=== PATIENT | female | born 1965 | race Two or more races ===

== ENCOUNTER 2023-01-07 11:07 | Outpatient (CLI) | payer OTHER | END 2023-01-07 11:13 | disposition home or self-care (01) | LOC: SONOGRAMA 11:07 | PROVIDERS: ATTEND Surgery | DX: C50.112 Malignant neoplasm of central portion of left female breast (principal) ==

== ENCOUNTER 2023-02-18 06:26 | Inpatient (IN) | payer OTHER ==
[~2023-02-18] VITALS: Ht 162.6 cm; Wt 106.6 kg
[2023-02-19 12:30] LABS: HEMATOCRIT 35.7 % (36.0-45.00); HEMOGLOBIN 12.1 g/dL (12.0-15.00); MEAN CELL VOLUME 86.4 fL (80.00-100.00); MEAN CORPUSCULAR HEMOGLOBIN 29.2 pg (27.00-32.0); MEAN CORPUSCULAR HGB CONC 33.8 g/dl (32.0-36.0); PLATELET COUNT 223 K/uL (150-450); RED BLOOD COUNT 4.13 M/uL (4.00-6.00); RED CELL DISTRIBUTION WIDTH 13.5 % (11.5-14.5)
[2023-02-19 12:52] LABS: ALBUMIN 3.1 gm/dL (3.4-5.0); BILIRUBIN TOTAL 0.4 mg/dL (0.3-1.2); CALCIUM 8.2 mg/dL (8.5-10.1); CREATININE SERUM 0.73 mg/dL (0.55-1.02); GFR 82.17; GLOBULINA 3.3 G/DL (2.4-3.5); POTASSIUM 4.03 mEq/L (3.5-5.1); TOTAL PROTEIN 6.4 gm/dL (6.4-8.2)
== END 2023-02-19 15:00 | disposition home or self-care (01) | DRG 580 ==
LOC: CIR.AMB 06:26 → SURH 16:31 → SEC-K 19:08 → SURH 19:10
PROVIDERS: Plastic Surgery; ADMIT Surgery; ATTEND Surgery
PROC: 0HHU0NZ Insertion of Tissue Expander into Left Breast, Open Approach (ICD-10-PCS; 2023-02-18)
PROC: 0KXL0Z6 Transfer Left Abdomen Muscle, Transverse Rectus Abdominis Myocutaneous Flap, Open Approach (ICD-10-PCS; 2023-02-18)
PROC: C71L1ZZ Planar Nuclear Medicine Imaging of Upper Chest Lymphatics using Technetium 99m (Tc-99m) (ICD-10-PCS; 2023-02-18)
PROC: 07B60ZZ Excision of Left Axillary Lymphatic, Open Approach (ICD-10-PCS; principal; 2023-02-18 07:00)
PROC: 0HTU0ZZ Resection of Left Breast, Open Approach (ICD-10-PCS; 2023-02-18 07:00)
DX: D05.12 Intraductal carcinoma in situ of left breast (principal); C77.3 Secondary and unspecified malignant neoplasm of axilla and upper limb lymph nodes; N62 Hypertrophy of breast; Z90.12 Acquired absence of left breast and nipple